=== PATIENT | female | born 1980 | race Caucasian/White ===

== ENCOUNTER 2017-04-11 12:18 | Emergency (ER) | payer OTHER ==
[~2017-04-11] VITALS: Ht 170.2 cm; Wt 81.7 kg
[~2017-04-11 12:18] MED LIST: ACEASPCAF; AMOX500 PO; Bactrim 400-801 EACH PO; Bactrim Ds Tab1 EACH PO; CEPH500 PO; CODACE30 PO; CYCL10; CYCL10 PO; DIAZ5; DOC250 PO; DOXY100 PO; HYDACE5; HYDACE5 PO; IBUP400; IBUP600 PO; IBUP800; IBUP800 PO; Keflex500 MG PO; METERG.2 PO; METR500 PO; MULVITMINE PO; NAPR500 PO; NAPR550 PO; OXYACE5T PO; OXYC5 PO; PENVK500 PO; Percocet 5-3251 EACH PO; RXHYD5325 PO; SULTRIDS PO; Tylenol325 MG PO; Ultram50 MG PO
[2017-04-11 13:38] LABS: Source, Urine Clean Catch
[2017-04-11 13:41] LABS: Bilirubin, Urine Neg (Neg); Blood, Urine 2+ (Neg); Glucose Qualitative, Urine Neg (Neg); Ketones, Urine Neg (Neg); Leukocyte Esterase, Urine 1+ (Neg); Nitrite, Urine Neg (Neg); Protein, Urine Neg (Neg); Specific Gravity, Urine 1.025 (1.003-1.022); Urobilinogen, Urine NORM (Normal)
[2017-04-11 13:50] LABS: Appearance, Urine Clear (Clear); Color, Urine Yellow (P-Yellow)
[2017-04-11] MEDS ORDERED: HYDR1TAB94 PO (13:50)
[2017-04-11] MEDS ORDERED: Bactrim Ds Tab1 EACH PO (13:50)
[2017-04-11 13:51] LABS: Bacteria Few /hpf; Red Blood Cells, Urine 0-2 /hpf (0-2); Squamous Epithelial Cells Many /hpf (Few); White Blood Cells, Urine 0-2 /hpf (0-5)
[2018-01-29] MEDS ORDERED: Amoxicillin500 MG PO (19:53)
[2018-01-29] MEDS ORDERED: Lice Killing240 ML TOP (19:53)
== END 2017-04-11 13:54 | disposition home or self-care (01) ==
LOC: ER 12:18
PROVIDERS: Psychiatry & Neurology Psychiatry
DX: S62.624A Displaced fracture of middle phalanx of right ring finger, initial encounter for closed fracture (principal); F17.210 Nicotine dependence, cigarettes, uncomplicated; Z98.51 Tubal ligation status; W19.XXXA Unspecified fall, initial encounter
CPT/HCPCS: 73130; 81001; 81025; 87086; 99283

== ENCOUNTER 2017-05-05 19:42 | Emergency (ER) | payer OTHER ==
[~2017-05-05] VITALS: Ht 170.2 cm; Wt 77.6 kg
[~2017-05-05 19:42] MED LIST changes: +HYDR1TAB94 PO
[2017-05-05] MEDS ORDERED: CEPH500 PO (23:46)
[2017-05-05] MEDS ORDERED: IBUP600 PO (23:46)
[2017-05-06] MEDS ORDERED: IBUP800 PO (16:41)
[2018-01-29] MEDS ORDERED: Amoxicillin500 MG PO (19:53)
[2018-01-29] MEDS ORDERED: Lice Killing240 ML TOP (19:53)
== END 2017-05-05 23:53 | disposition home or self-care (01) ==
LOC: ER 19:42
DX: S01.81XA Laceration without foreign body of other part of head, initial encounter (principal); F17.200 Nicotine dependence, unspecified, uncomplicated; W22.8XXA Striking against or struck by other objects, initial encounter
CPT/HCPCS: 12013; 70450; 99284

== ENCOUNTER 2017-05-06 14:22 | Emergency (ER) | payer OTHER ==
[~2017-05-06] VITALS: Ht 170.2 cm; Wt 77.1 kg
[2017-05-06] MEDS ORDERED: IBUP800 PO (16:41)
[2018-01-29] MEDS ORDERED: Lice Killing240 ML TOP (19:53)
[2018-01-29] MEDS ORDERED: Amoxicillin500 MG PO (19:53)
== END 2017-05-06 16:36 | disposition home or self-care (01) ==
LOC: ER 14:22
DX: S01.112D Laceration without foreign body of left eyelid and periocular area, subsequent encounter (principal); F17.200 Nicotine dependence, unspecified, uncomplicated; W22.8XXD Striking against or struck by other objects, subsequent encounter
CPT/HCPCS: 99283

== ENCOUNTER 2017-05-12 13:58 | Emergency (ER) | payer OTHER ==
[~2017-05-12] VITALS: Ht 170.2 cm; Wt 77.6 kg
[2018-01-29] MEDS ORDERED: Lice Killing240 ML TOP (19:53)
[2018-01-29] MEDS ORDERED: Amoxicillin500 MG PO (19:53)
== END 2017-05-12 14:57 | disposition home or self-care (01) ==
LOC: ER 13:58
DX: S01.112D Laceration without foreign body of left eyelid and periocular area, subsequent encounter (principal); F17.200 Nicotine dependence, unspecified, uncomplicated; X58.XXXD Exposure to other specified factors, subsequent encounter
CPT/HCPCS: 99281

== ENCOUNTER 2018-09-08 16:53 | Emergency (ER) | payer OTHER ==
[~2018-09-08] VITALS: Ht 170.2 cm; Wt 86.2 kg
[~2018-09-08 16:53] MED LIST changes: +Amoxicillin500 MG PO; +Lice Killing240 ML TOP
== END 2018-09-08 18:15 | disposition home or self-care (01) ==
LOC: ER 16:53
DX: M25.562 Pain in left knee (principal); F17.200 Nicotine dependence, unspecified, uncomplicated; X50.1XXA Overexertion from prolonged static or awkward postures, initial encounter
CPT/HCPCS: 29505; 99282-25

== ENCOUNTER 2018-11-16 19:50 | Emergency (ER) | payer OTHER ==
[~2018-11-16] VITALS: Ht 170.2 cm; Wt 80.3 kg
[2018-11-16] MEDS ORDERED: Monodox100 MG PO (20:45)
== END 2018-11-16 20:55 | disposition home or self-care (01) ==
LOC: ER 19:50
DX: L02.31 Cutaneous abscess of buttock (principal); L02.416 Cutaneous abscess of left lower limb; L02.415 Cutaneous abscess of right lower limb; F17.200 Nicotine dependence, unspecified, uncomplicated
CPT/HCPCS: 99283

== ENCOUNTER 2018-12-11 13:44 | Emergency (ER) | payer OTHER ==
[~2018-12-11] VITALS: Ht 170.2 cm; Wt 80.3 kg
[~2018-12-11 13:44] MED LIST changes: +Monodox100 MG PO
[2018-12-11] MEDS ORDERED: Bactrim Ds Tab1 EACH PO (14:06)
== END 2018-12-11 14:11 | disposition home or self-care (01) ==
LOC: ER 13:44
DX: L02.31 Cutaneous abscess of buttock (principal); L08.9 Local infection of the skin and subcutaneous tissue, unspecified; B95.62 Methicillin resistant Staphylococcus aureus infection as the cause of diseases classified elsewhere; Z79.899 Other long term (current) drug therapy; F17.210 Nicotine dependence, cigarettes, uncomplicated
CPT/HCPCS: 99282

== ENCOUNTER 2019-05-19 20:54 | Emergency (ER) | payer OTHER ==
[~2019-05-19] VITALS: Ht 170.2 cm; Wt 81.7 kg
[~2019-05-19 20:54] MED LIST changes: +BENZ100A PO; +MONDOXYNE NL100 MG PO
[2019-05-19 21:33] LABS: Source, Urine Clean Catch
[2019-05-19 21:36] LABS: Blood, Urine 5+ (Neg); Glucose Qualitative, Urine Neg (Neg); Ketones, Urine 1+ (Neg); Leukocyte Esterase, Urine 3+ (Neg); Nitrite, Urine Neg (Neg); Protein, Urine 2+ (Neg); Specific Gravity, Urine 1.025 (1.003-1.022); Urobilinogen, Urine 1+ (Normal)
[2019-05-19 21:37] LABS: Appearance, Urine Hazy (Clear); Bilirubin, Urine 1+ (Neg); Color, Urine Amber (P-Yellow)
[2019-05-19 21:48] LABS: Bacteria Many /hpf; Mucus Light (0-Heavy); Red Blood Cells, Urine 25-50 /hpf (0-2); Squamous Epithelial Cells Many /hpf (Few); White Blood Cells, Urine TNTC /hpf (0-5)
[2019-05-19] MEDS ORDERED: Pyridium200 MG PO (22:20)
[2019-05-19] MEDS ORDERED: Keflex500 MG PO (22:20)
== END 2019-05-19 22:29 | disposition home or self-care (01) ==
LOC: ER 20:54
PROVIDERS: Emergency Medicine
DX: N39.0 Urinary tract infection, site not specified (principal); F17.200 Nicotine dependence, unspecified, uncomplicated
CPT/HCPCS: 81001; 81025; 87077; 87086; 87186; 99283

== ENCOUNTER 2019-06-12 20:25 | Emergency (ER) | payer OTHER ==
[~2019-06-12] VITALS: Ht 170.2 cm; Wt 81.7 kg
[~2019-06-12 20:25] MED LIST changes: +Pyridium200 MG PO
[2019-06-12 20:52] LABS: Source, Urine Clean Catch
[2019-06-12 20:59] LABS: Appearance, Urine Turbid (Clear); Bilirubin, Urine Neg (Neg); Blood, Urine 5+ (Neg); Color, Urine Red (P-Yellow); Glucose Qualitative, Urine Neg (Neg); Ketones, Urine 2+ (Neg); Leukocyte Esterase, Urine 1+ (Neg); Nitrite, Urine Neg (Neg); Protein, Urine 3+ (Neg); Specific Gravity, Urine 1.025 (1.003-1.022); Urobilinogen, Urine NORM (Normal)
[2019-06-12 21:13] LABS: Red Blood Cells, Urine TNTC /hpf (0-2)
[2019-06-12 21:14] LABS: Bacteria Mod /hpf; Squamous Epithelial Cells Few /hpf (Few)
[2019-06-12] MEDS ORDERED: Keflex500 MG PO (21:18)
== END 2019-06-12 21:34 | disposition home or self-care (01) ==
LOC: ER 20:25
PROVIDERS: Physician Assistant
DX: N39.0 Urinary tract infection, site not specified (principal); F17.200 Nicotine dependence, unspecified, uncomplicated; Z88.5 Allergy status to narcotic agent
CPT/HCPCS: 81001; 81025; 87086; 99283; A9270-GY

== ENCOUNTER 2019-06-13 12:13 | Emergency (ER) | payer OTHER ==
[~2019-06-13] VITALS: Ht 170.2 cm; Wt 81.7 kg
== END 2019-06-13 14:00 | disposition home or self-care (01) ==
LOC: ER 12:13
DX: R51 Headache (principal); N39.0 Urinary tract infection, site not specified; Z88.5 Allergy status to narcotic agent; F17.200 Nicotine dependence, unspecified, uncomplicated
CPT/HCPCS: 96372; 99282-25; J0696; J1885

== ENCOUNTER 2019-06-13 22:51 | Emergency (ER) | payer OTHER ==
[~2019-06-13] VITALS: Ht 170.2 cm; Wt 81.7 kg
[2019-06-13 23:23] LABS: Source, Urine Clean Catch
[2019-06-13 23:26] LABS: Appearance, Urine Clear (Clear); Blood, Urine 5+ (Neg); Glucose Qualitative, Urine Neg (Neg); Ketones, Urine 1+ (Neg); Leukocyte Esterase, Urine Neg (Neg); Nitrite, Urine Pos (Neg); Protein, Urine 2+ (Neg); Specific Gravity, Urine 1.025 (1.003-1.022); Urobilinogen, Urine 3+ (Normal)
[2019-06-13 23:31] LABS: Bilirubin, Urine 3+ (Neg); Color, Urine Orange (P-Yellow)
[2019-06-13 23:32] LABS: Bacteria Many /hpf; Red Blood Cells, Urine TNTC /hpf (0-2); Squamous Epithelial Cells Mod /hpf (Few); White Blood Cells, Urine 0-2 /hpf (0-5)
== END 2019-06-14 00:13 | disposition home or self-care (01) ==
LOC: ER 22:51
PROVIDERS: Emergency Medicine
DX: N39.0 Urinary tract infection, site not specified (principal); R51 Headache; F17.200 Nicotine dependence, unspecified, uncomplicated; Z88.5 Allergy status to narcotic agent
CPT/HCPCS: 81001; 87086; 96372; 99283-25; J0561; J1885

== ENCOUNTER 2019-12-09 21:28 | Emergency (ER) | payer OTHER ==
[~2019-12-09] VITALS: Ht 170.2 cm; Wt 81.7 kg
[2019-12-09] MEDS ORDERED: DOXYCYCLINE HY100 M1 PO (23:40)
== END 2019-12-09 23:46 | disposition home or self-care (01) ==
LOC: ER 21:28
DX: L02.512 Cutaneous abscess of left hand (principal); L03.114 Cellulitis of left upper limb; F17.200 Nicotine dependence, unspecified, uncomplicated
CPT/HCPCS: 10060; 99283-25

== ENCOUNTER 2020-01-26 12:44 | Emergency (ER) | payer OTHER ==
[~2020-01-26] VITALS: Ht 170.2 cm; Wt 81.7 kg
[~2020-01-26 12:44] MED LIST changes: +DOXYCYCLINE HY100 M1 PO
[2020-01-26 13:41] LABS: Source, Urine Catheter
[2020-01-26 13:48] LABS: Appearance, Urine Hazy (Clear); Bilirubin, Urine Neg (Neg); Blood, Urine 4+ (Neg); Color, Urine Yellow (P-Yellow); Glucose Qualitative, Urine Neg (Neg); Ketones, Urine 1+ (Neg); Leukocyte Esterase, Urine 2+ (Neg); Nitrite, Urine Neg (Neg); Protein, Urine 2+ (Neg); Specific Gravity, Urine 1.025 (1.003-1.022); Urobilinogen, Urine NORM (Normal)
[2020-01-26 13:57] LABS: Amorphous Light (0-Heavy); Bacteria Mod /hpf; Renal Epithelial Rare /hpf (0-Rare); Squamous Epithelial Cells Many /hpf (Few); Transitional Epithelial Cells Few /hpf (0-Rare); Yeast/Fungi Urine Mod /hpf
[2020-01-26 14:05] LABS: U Amphetamine Screen DETECTED; U Barbituate Screen Not Detected; U Benzodiazapine Screen Not Detected; U Buprenorphine Screen Not Detected; U Cannabinoids Screen DETECTED; U Cocaine Screen Not Detected; U Methadone Screen Not Detected; U Methamphetamine Screen DETECTED; U Opiates Screen Not Detected; U Oxycodone Screen Not Detected; U Phencyclidine Screen Not Detected; U Propoxyphene Screen Not Detected
[2020-01-26 15:45] LABS: BASOPHILS ABSOLUTE AUTO 0.04 K/mm3 (0.00-0.23); BASOPHILS PERCENT AUTO 1 % (0-2); EOSINOPHILS ABSOLUTE AUTO 0.05 K/mm3 (0.00-0.68); EOSINOPHILS PERCENT AUTO 1 % (0-6); Hematocrit 36.3 % (33.0-51.0); Hemoglobin 12.5 g/dL (11.5-16.0); IMMATURE GRAN ABSOLUTE AUTO 0.01 K/mm3 (0.00-0.10); IMMATURE GRAN PERCENT AUTO 0 % (0-1); LYMPHOCYTES ABSOLUTE AUTO 2.15 K/mm3 (0.84-5.20); LYMPHOCYTES PERCENT AUTO 26 % (21-46); MONOCYTES ABSOLUTE AUTO 0.97 K/mm3 (0.16-1.47); MONOCYTES PERCENT AUTO 12 % (4-13); Mean Corpuscular HGB 31.3 pg (26.0-34.0); Mean Corpuscular HGB Conc 34.4 g/dL (31.5-36.5); Mean Corpuscular Volume 91 fL (80-100); Mean Platelet Volume 8.9 fL (9.1-12.4); NEUTROPHILS ABSOLUTE AUTO 4.96 K/mm3 (1.96-9.15); NEUTROPHILS PERCENT AUTO 61 % (41-73); Platelet Count 278 K/mm3 (150-400); RDW Standard Deviation 43.8 fL (35.1-46.3); Red Blood Cell Count 3.99 M/mm3 (3.80-5.20); White Blood Cell Count 8.18 K/mm3 (4.00-11.30)
[2020-01-26 16:12] LABS: Alanine Aminotransfer (ALT/SGP 124 U/L (12-78); Albumin, Blood 3.4 g/dL (3.4-5.0); Albumin/Globulin Ratio 0.9 (0.8-1.8); Alk Phos 79 U/L (50-136); Anion Gap 8 mmol/L (6-16); Aspartate Aminotrans (AST/SGOT 70 U/L (12-37); Bilirubin, Total 0.5 mg/dL (0.1-1.0); Blood Urea Nitrogen 21 mg/dL (8-24); CO2, Blood 22 mmol/L (21-32); Calcium, Blood 8.4 mg/dL (8.5-10.1); Chloride, Blood 108 mmol/L (98-108); Creatinine, Blood 0.55 mg/dL (0.40-1.00); Ethanol (Alcohol), Blood, Med 35 mg/dL; Free Thyroxine 1.18 ng/dL (0.70-1.60); Globulin, Blood 3.8 g/dL (2.2-4.0); Glomerular Filtration Rate >60 (60-); Glucose, Blood 90 mg/dL (70-99); Potassium, Blood 3.7 mmol/L (3.5-5.5); Salicylate <1.7 mg/dL (2.8-20.0); Sodium, Blood 138 mmol/L (136-145); Total Protein, Blood 7.2 g/dL (6.4-8.2)
[2020-01-26 16:15] LABS: Acetaminophen, Random <2.0 ug/mL (10.0-30.0)
== END 2020-01-26 20:01 | disposition home or self-care (01) ==
LOC: ER 12:44
PROVIDERS: Emergency Medicine
DX: F15.959 Other stimulant use, unspecified with stimulant-induced psychotic disorder, unspecified (principal); F17.200 Nicotine dependence, unspecified, uncomplicated
CPT/HCPCS: 80053; 81001; 81025; 84439; 84443; 85025; 87086; 96372; 99285; G0480; J2060

== ENCOUNTER 2022-10-14 05:35 | Emergency (ER) | payer OTHER ==
[~2022-10-14] VITALS: Ht 170.2 cm; Wt 108.9 kg
[2022-10-14 06:34] VITALS: BP 133/78
== END 2022-10-14 06:56 | disposition home or self-care (01) ==
LOC: ER 05:35
DX: M79.89 Other specified soft tissue disorders (principal); F17.200 Nicotine dependence, unspecified, uncomplicated
CPT/HCPCS: 73630; 99283-25

== ENCOUNTER → 2023-11-11 | Outpatient (CLI) | payer OTHER ==
[~2023-11-11] MED LIST changes: +ATOMOXETINE HCL80 M3 PO; +BACTRIM DS TAB1 EAC1 PO; +BUSPIRONE HCL5 M6 PO; +CATAPRES0.1 MG PO; +FLUV50 PO; +Naltrexone HCl50 MG PO; +[UNRECOGNIZED DRUG - CODE] PO
== END ==
LOC: LAB SHORT 17:45 → LAB 17:45
DX: R35.0 Frequency of micturition (principal)
CPT/HCPCS: 87086

== ENCOUNTER 2024-03-09 09:35 | Emergency (ER) | payer OTHER ==
[~2024-03-09] VITALS: Ht 170.2 cm; Wt 99.8 kg
[2024-03-09 10:43] LABS: Influenza A, PCR NEGATIVE (NEGATIVE); Influenza B, PCR NEGATIVE (NEGATIVE); Resp Syncytial Virus, PCR NEGATIVE (NEGATIVE); SARS-Cov-2 (COVID-19) PCR, MMC NEGATIVE (NEGATIVE)
[2024-03-09] MEDS ORDERED: BENZ100A PO (11:14)
[2024-03-09] MEDS ORDERED: ALBU90OI INH (11:14)
[2024-03-09 11:33] VITALS: BP 146/74
== END 2024-03-09 11:34 | disposition home or self-care (01) ==
LOC: ER 09:35
PROVIDERS: Physician Assistant
DX: J06.9 Acute upper respiratory infection, unspecified (principal); F17.200 Nicotine dependence, unspecified, uncomplicated; Z79.52 Long term (current) use of systemic steroids; Z79.899 Other long term (current) drug therapy; Z88.5 Allergy status to narcotic agent
CPT/HCPCS: 0241U; 71046; 99283-25